=== PATIENT | male | born 1975 | race Caucasian/White ===

== ENCOUNTER 2019-10-21 18:31 | Emergency (ER) | payer BC, OTHER ==
--- NOTE | 2019-10-21 19:24 | EDM.PDOC ---
ED HPI GENERAL MEDICAL PROBLEM - General Chief Complaint: General Stated Complaint: FLANK PAIN Time Seen by Provider: 10/21/19 19:01 Source of Information: Reports: Patient History Limitations: Reports: No Limitations - History of Present Illness INITIAL COMMENTS - FREE TEXT/NARRATIVE: Mr. Robbins is a very pleasant 44-year-old man who states that he is a currently furloughed oil worker. 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 He states that he developed pain to his lower right back - he indicates his right SI joint area - about 2 months ago. He is comfortable if he stands, but the pain increases if he sits or performs various movements. He states that that pain is reproducible with direct palpation. He comes to the ED today, however, not for that lower right back pain, but for left flank pain that began 4 days ago. That pain is constant, and he has not identified any modifiers. No urinary symptoms, such as dysuria, urinary urgency or frequency, or gross hematuria. No prior similar symptoms. The patient states that he will take 4 tablets of Aleve on an as-needed basis to help with his pain. Here in the ED, the patient's initial BP is found to be elevated at 141/87, otherwise, he is hemodynamically stable, afebrile, saturating 100% on room air. Other than the back pain, the patient denies recent fever, chills, sore throat, ear pain, nasal or sinus congestion, cough, dyspnea, chest pain, palpitations, nausea, vomiting, constipation, diarrhea, abdominal pain, urinary symptoms, recent weight gain or weight loss, recent bloody bowel movements or black bowel movements, recent joint aches, headaches, or rashes. The patient does not have a PCP. Left Flank Pain Score (Numeric/FACES): 10 Right Hip Pain Score (Numeric/FACES): 5 - Related Data Allergies Allergy/AdvReac Type Severity Reaction Status Date / Time Penicillins Allergy Cannot Verified 10/21/19 19:11 Remember Home Meds: Home Meds Orphenadrine [Norflex] 1 tab PO Q12H PRN #14 tab.er 10/21/19 [Rx] Past Medical History HEENT History: Reports: Allergic Rhinitis Respiratory History: Reports: Asthma (as a child), Sleep Apnea (nightly CPAP 7- rhett) Social & Family History - Tobacco Use Tobacco Use Within Last Twelve Months: Smokeless Tobacco (Chews 1 can per week) - Caffeine Use Caffeine Use: Reports: None - Alcohol Use Alcohol Use History: No - Recreational Drug Use Recreational Drug Use: No - Living Situation & Occupation Living situation: Reports: Single, Other (Roomate) Occupation: Employed (Furloughed oil worker) ED ROS GENERAL - Review of Systems Review Of Systems: Comprehensive ROS is negative, except as noted in HPI. ED EXAM, GENERAL - Physical Exam Exam: See Below Exam Limited By: No Limitations General Appearance: Alert, WD/WN, No Apparent Distress Eye Exam: Bilateral Eye: EOMI, Normal Inspection Ears: Normal External Exam, Hearing Grossly Normal Nose: Normal Inspection Throat/Mouth: Normal Inspection, Normal Lips, Normal Voice, No Airway Compromise Head: Atraumatic, Normocephalic Neck: Normal Inspection, Full Range of Motion Respiratory/Chest: No Respiratory Distress, Lungs Clear, Normal Breath Sounds, No Accessory Muscle Use Cardiovascular: Normal Peripheral Pulses, Regular Rate, Rhythm, No Edema, No Gallop, No JVD, No Murmur, No Rub Peripheral Pulses: 3+: Radial (L), Radial (R) GI/Abdominal: Normal Bowel Sounds, Soft, Non-Tender, No Organomegaly, No Distention, No Abnormal Bruit, No Mass (Male) Exam: Deferred Rectal (Males) Exam: Deferred Back Exam: Normal Inspection, Full Range of Motion, Other (No visible abnormality to the patient's back, such as swelling, erythema, ecchymosis, or abrasion. The patient's lower right back pain is reproducible with palpation over the right SI joint, however, the patient's left flank pain is not reproducible with either direct palpation or percussion. Straight leg raise negative to 90 degrees bilaterally.). No: CVA Tenderness (L), CVA Tenderness (R) Extremities: Normal Inspection, Normal Range of Motion, No Pedal Edema, Normal Capillary Refill Neurological: Alert, Oriented, Normal Cognition, No Motor/Sensory Deficits Psychiatric: Normal Affect Skin Exam: Warm, Dry, Intact, Normal Color, No Rash Course - Vital Signs Last Recorded V/S: Last Vital Signs Temp 36.4 C 10/21/19 19:00 Pulse 79 10/21/19 19:00 Resp 16 10/21/19 19:00 BP 141/87 H 10/21/19 19:00 Pulse Ox 100 10/21/19 19:00 - Orders/Labs/Meds Labs: Laboratory Tests 10/21/19 Range/Units 20:25 Urine Color Yellow (Yellow) Urine Appearance Clear (Clear) Urine pH 7.0 (5.0-8.0) Ur Specific [place] 1.015 (1.005-1.030) Urine Protein Negative (Negative) Urine Glucose (UA) Negative (Negative) Urine Ketones Negative (Negative) Urine Occult Blood Negative (Negative) Urine Nitrite Negative (Negative) Urine Bilirubin Negative (Negative) Urine Urobilinogen 0.2 (0.2-1.0) Ur Leukocyte Esterase Negative (Negative) Urine RBC 0-5 (0-5) /hpf Urine WBC 0-5 (0-5) /hpf Ur Squamous Epith Cells 0-5 (0-5) /hpf Urine Bacteria Few (FEW) /hpf Urine Mucus Few (FEW) /hpf Meds: Medications Discontinued Medications Generic Name Dose Route Start Last Admin Trade Name Freq PRN Reason Stop Dose Admin Orphenadrine Citrate 100 mg 10/21/19 21:41 10/21/19 21:46 Norflex PO 10/21/19 21:42 100 mg ONETIME STA Administration - Re-Assessments/Exams Free Text/Narrative Re-Assessment/Exam: 10/21/19 19:17 As above, the patient has been suffering from pain to his right SI joint, with radiation down his right lower extremity, for about 2 months, and now presents the ED with 4 days of constant left flank pain. No CVA tenderness on exam, and straight leg raise is negative to 90 degrees bilaterally. I am concerned that the patient's left flank pain may be due to a ureterolith, therefore I have ordered a urinalysis and a CT scan of his abdomen and pelvis without contrast. 10/21/19 20:24 CT of the abdomen and pelvis without contrast as read by Dr. Rivesr as: 1. Degenerative change within the lumbar spine as noted above. 2. Nothing acute is appreciated on noncontrast CT study of the abdomen and pelvis. The patient has not yet provided a urine sample for the urinalysis. 10/21/19 21:40 The patient's urinalysis is unremarkable. 10/21/19 21:45 Test results discussed with the patient. As above, joseph's work-up shows degenerative changes in his lumbar spine, but no acute findings. His left flank pain is most likely due to a muscle spasm, possibly due to nerve irritation from his lumbar spine. I will start the patient on Norflex and prescribe a 7- day course. I recommended that he take that along with an NSAID, but not the dose of Aleve that he has been taking. I will refer him to the clinic to establish a PCP, and from there, they can discuss whether or not a referral to a spinal surgeon would be appropriate. Departure - Departure Time of Disposition: 21:46 Disposition: Home, Self-Care 01 Condition: Good Clinical Impression: Musculoskeletal back pain, Lumbar degenerative disc disease - Discharge Information *PRESCRIPTION DRUG MONITORING PROGRAM REVIEWED*: Not Applicable *COPY OF PRESCRIPTION DRUG MONITORING REPORT IN PATIENT JAMI: Not Applicable Prescriptions: Orphenadrine [Norflex] 1 tab PO Q12H PRN #14 tab.er PRN Reason: Muscle Spasm Instructions: Acute Back Pain, Adult, Degenerative Disk Disease Referrals: PCP,None [Primary Care Provider] - Anjelica Nash, JOSE RAFAEL [Nurse Practitioner] - Forms: ED Department Discharge Additional Instructions: You were seen in the emergency room for 2 months of lower right back pain, with radiation down your right lower extremity, and 4 days of left flank pain. Work-up in the ER included a urinalysis and a CT scan of your abdomen and pelvis without contrast. Your urinalysis was unremarkable, but the CT scan found that you have significant lumbar degenerative disc disease. You do not have a kidney stone. Based on your history, physical exam, and ER tests, your left flank pain is most likely due to a muscle spasm, possibly related to irritated nerves coming from your lumbar spine. You have been started on the muscle relaxant Norflex, and a prescription for Norflex has been sent to the [facility], located just south and across [address] from [facility]. Take 1 tablet of Norflex every 12 hours, starting tomorrow morning, 10/22/2019, as prescribed. Norflex works well with an NSAID, such as naproxen (Aleve) or ibuprofen (Advil, Motrin). You may take 2 tablets of naproxen every 12 hours, with food, or 3 to 4 tablets of ibuprofen up to every 8 hours, with food, as needed for discomfort. Follow-up with Anjelica Nash NP, or one of the other providers in the clinic, to establish a PCP. From there, you can discuss whether or not further evaluation, such as an MRI of your back, would be appropriate, and whether or not referral to a spinal surgeon would be indicated. If any other problems, please do not hesitate to return to the ER. Sepsis Event Note (ED) - Evaluation Sepsis Screening Result: No Definite Risk - Focused Exam Vital Signs: Vital Signs Temp Pulse Resp BP Pulse Ox 10/21/19 19:00 36.4 C 79 16 141/87 H 100
--- NOTE | 2019-10-21 19:56 | CT ---
CT abdomen and pelvis Technique: Multiple axial sections were obtained from above the dome of the diaphragm inferiorly through the pubic symphysis. Intravenous and oral contrast not utilized. Study performed as a ureteral stone protocol. Findings: Ureters show no dilatation. Kidneys show no abnormal calcifications. No ureteral stone is seen. No bladder calculi are noted. Other findings: Visualized lung bases show nothing acute. Noncontrast appearance of the liver shows no focal abnormality. Spleen shows no abnormality and appears normal in size. Adrenal glands show no nodule. Pancreas shows no abnormality. Gallbladder contains no calcified gallstones. Aorta shows no aneurysm. No retroperitoneal adenopathy is seen. Appendix is seen and is felt to be normal in size. No pelvic mass or adenopathy is seen. No free fluid or inflammatory change is appreciated. Bone window settings were reviewed which shows disc space narrowing at L4-L5 with vacuum phenomena and mild retrolisthesis due to degenerative change within the apophyseal joints. Anterior spondylolisthesis is noted at L5-S1 measuring 8 mm. Severe disc space narrowing and vacuum phenomena is seen as well as bilateral spondylolytic defects. Impression: 1. Degenerative change within the lumbar spine as noted above. 2. Nothing acute is appreciated on noncontrast CT study of the abdomen and pelvis. Diagnostic code #2 Study was dictated in MDT
[2019-10-21] MEDS ORDERED: Orphenadrine 100 MG Tab.ER PO STA (21:41)
== END 2019-10-21 22:00 | disposition home or self-care (01) ==
LOC: JD.ED 18:31
DX: M51.36 Other intervertebral disc degeneration, lumbar region (principal); J45.909 Unspecified asthma, uncomplicated; F17.220 Nicotine dependence, chewing tobacco, uncomplicated; Z88.0 Allergy status to penicillin
CPT/HCPCS: 74176; 81001; 99284; A9270; 99283

== ENCOUNTER 2021-10-05 11:46 | Emergency (ER) | payer OTHER | END 2021-10-05 13:00 | disposition left against medical advice (07) | LOC: JD.ED 11:46 | DX: M79.671 Pain in right foot (principal); M79.672 Pain in left foot; Z53.8 Procedure and treatment not carried out for other reasons; Z88.0 Allergy status to penicillin | CPT/HCPCS: 736302650; 73630-50; 99282; 99283-25 ==